=== PATIENT | female | born 1960 | race Caucasian/White ===

== ENCOUNTER 2021-11-25 08:18 | Outpatient (CLI) | payer BC, SELFPAY ==
--- NOTE | ~2021-11-25 | MM_ITS ---
EXAMINATION: MM scrn ambika implant BI w lily HISTORY: Screening mammogram TECHNIQUE: Craniocaudal and mediolateral oblique 3-D tomosynthesis images with implant displacement a nd synthetic 2-D images were generated. Craniocaudal and mediolateral oblique views of the breasts wi thout implant displacement were obtained using full field digital mammography. CAD analysis was submi tted and interpreted. COMPARISON: 01/02/2019, 10/01/2017, 09/11/2016 BREAST PARENCHYMAL COMPOSITION: There are scattered areas of fibroglandular density. FINDINGS: A stable mass in the anterior third of the inner right breast is considered benign given th e lack of interval change. There is no evidence of suspicious mass, calcification, or architectural d istortion to suggest malignancy in either breast. There has been no suspicious interval change. IMPRESSION: 1. No mammographic evidence of malignancy. 2. Recommend routine screening mammography in one year. BI-RADS Category 2: Benign finding(s). Reviewed, dictated and finalized at location A.
== END 2021-11-25 08:19 | disposition home or self-care (01) ==
LOC: ANHIMG 08:20
PROVIDERS: PCP Internal Medicine; Visit Provider Internal Medicine
DX: Z12.31 Encounter for screening mammogram for malignant neoplasm of breast (principal)
CPT/HCPCS: 77063; 77067

== ENCOUNTER 2022-01-27 09:53 | Outpatient (CLI) | payer BC, SELFPAY ==
--- NOTE | ~2022-01-27 | DEXA_ITS ---
Bone Density Report Name: DANY MERRITT Age: 61 Sex: Female Ethnicity: White Date of : 1960 Indication: postmenopausal; screening for osteoporosis; height loss; Referring Provider: DUYEN*, BERNARDO Millard Study: Bone densitometry was performed. Exam Date: January 27, 2022 Accession number: [id number] Bone Density: Region BMD T-score Z-score Classification AP Spine(L1, L2, L3) 0.911 -1.0 0.6 Normal Femoral Neck (Left) 0.723 -1.1 0.2 Osteopenia Total Hip (Left) 0.905 -0.3 0.8 Normal Femoral Neck (Right) 0.724 -1.1 0.3 Osteopenia Total Hip (Right) 0.891 -0.4 0.6 Normal Total Hip Mean 0.898 -0.4 0.7 Normal World Health Organization criteria for BMD impression classify patients as: Normal (T-score at or above -1.0), Osteopenia (T-score between -1.0 and -2.5), or Osteoporosis (T-score at or below -2.5). 10-year Fracture Risk(1): Major Osteoporotic Fracture 6.9% Hip Fracture 0.4% Reported Risk Factors: [place] (), Neck BMD=0.723, BMI=39.4 (1) FRAX(R) Version 3.08. Fracture probability calculated for an untreated patient. Fracture probability may be lower if the patient has received treatment. Clinical Information Provided by Patient: Has used the following medications: Vitamin D, Calcium Patient maximum height was 60 Menopause Age: 49 Onset of menses at age 10 Number of children 2 Impression: The patient has low bone mass, based on the Left Femoral Neck T-score. The patient has an estimated ten-year risk of hip fracture of 0.4% and an estimated ten-year risk of major fracture of 6.9%, based on the WHO FRAX algorithm. Discussion: BONE DENSITY IS LOW AT ONE OR MORE SKELETAL SITES. This patient's lowest T-score is low at one or more skeletal sites. It meets the World Health Organization's (WHO) criteria for ?low bone mass? (T-score between -1.0 and -2.5). The patient's 10-year risk of fracture as calculated by FRAX is less than the threshold where pharmacological therapy is recommended by the National Osteoporosis Foundation (NOF). However, all treatment decisions require clinical judgment and consideration of individual patient factors, including patient preferences, comorbidities, previous drug use, risk factors not captured in the FRAX model (e.g., frailty, falls, vitamin D deficiency, increased bone turnover, interval significant decline in bone density) and possible under or overestimation of fracture risk by FRAX. The patient should follow a healthful lifestyle (good nutrition with adequate calcium and vitamin D, and appropriate weight-bearing exercise). Follow-Up: Consider repeating this study in 2 to 3 years to reassess this patient's status, or sooner if there is some new clinical indication. Reported by: ANNETTE on 01/27/2022 10:17:00 AM.
== END 2022-01-27 09:54 | disposition home or self-care (01) ==
LOC: ANHIMG 09:56
PROVIDERS: PCP Internal Medicine; Visit Provider Internal Medicine
DX: M81.0 Age-related osteoporosis without current pathological fracture (principal); M85.89 Other specified disorders of bone density and structure, multiple sites
CPT/HCPCS: 77080

== ENCOUNTER 2023-09-21 15:04 | Outpatient (CLI) | payer BC, SELFPAY ==
--- NOTE | ~2023-09-21 | MM_ITS ---
EXAMINATION: MM scrn ambika implant BI w lily HISTORY: Screening mammogram TECHNIQUE: Craniocaudal and mediolateral oblique 3-D tomosynthesis images with implant displacement a nd synthetic 2-D images were generated. Craniocaudal and mediolateral oblique views of the breasts wi thout implant displacement were obtained using full field digital mammography. CAD analysis was submi tted and interpreted. COMPARISON: 11/25/2021, 01/02/2019 bilateral implant screening mammogram examinations BREAST PARENCHYMAL COMPOSITION: There are scattered areas of fibroglandular density. FINDINGS: Status post bilateral augmentation mammoplasty. Stable small circumscribed low-density mass in the anterior inner right breast, benign in appearance. There is no evidence of suspicious mass, c alcification, or architectural distortion to suggest malignancy in either breast. There has been no s uspicious interval change. IMPRESSION: 1. No mammographic evidence of malignancy. 2. Recommend routine screening mammography in one year. BI-RADS Category 2: Benign finding(s). Reviewed, dictated and finalized at location A.
== END 2023-09-21 15:05 | disposition home or self-care (01) ==
PROVIDERS: PCP Internal Medicine; Visit Provider Internal Medicine
DX: Z12.31 Encounter for screening mammogram for malignant neoplasm of breast (principal)
CPT/HCPCS: 77063; 77067

== ENCOUNTER 2024-11-27 13:49 | Outpatient (CLI) | payer MEDICARE, SELFPAY ==
--- NOTE | ~2024-11-27 | MM_ITS ---
EXAMINATION: MM scrn ambika implant BI w lily HISTORY: Screening mammogram TECHNIQUE: Craniocaudal and mediolateral oblique 3-D tomosynthesis images with implant displacement a nd synthetic 2-D images were generated. Craniocaudal and mediolateral oblique views of the breasts wi thout implant displacement were obtained using full field digital mammography. CAD analysis was submi tted and interpreted. COMPARISON: Comparison to multiple prior studies sequentially, with oldest reviewed study dated 10/2015. BREAST PARENCHYMAL COMPOSITION: Not dense: There are scattered areas of fibroglandular density. FINDINGS: There is no evidence of suspicious mass, calcification, or architectural distortion to sugg est malignancy in either breast. There has been no suspicious interval change. IMPRESSION: 1. No mammographic evidence of malignancy. 2. Recommend routine screening mammography in one year. BI-RADS Category 1: Negative Reviewed, dictated and finalized at location B.
--- NOTE | ~2024-11-27 | DEXA_ITS ---
Bone Density Report Name: DANY MERRITT Age: 64 Sex: Female Ethnicity: White Date of : 1960 Indication: postmenopausal; screening for osteoporosis; height loss; Referring Provider: DUYEN*, BERNARDO Millard Study: Bone densitometry was performed. Exam Date: November 27, 2024 Accession number: [id number] Bone Density: Region BMD T-score Z-score Classification AP Spine(L1, L2, L3) 0.828 -1.7 0.0 Osteopenia Femoral Neck (Left) 0.683 -1.5 0.0 Osteopenia Total Hip (Left) 0.937 0.0 1.2 Normal Femoral Neck (Right) 0.672 -1.6 -0.1 Osteopenia Total Hip (Right) 0.891 -0.4 0.8 Normal Total Hip Mean 0.914 -0.2 1.0 Normal World Health Organization criteria for BMD impression classify patients as: Normal (T-score at or above -1.0), Osteopenia (T-score between -1.0 and -2.5), or Osteoporosis (T-score at or below -2.5). 10-year Fracture Risk(1): Major Osteoporotic Fracture 8.7% Hip Fracture 1.0% Reported Risk Factors: [place] (), Neck BMD=0.672, BMI=33.3 (1) FRAX(R) Version 3.08. Fracture probability calculated for an untreated patient. Fracture probability may be lower if the patient has received treatment. Previous Exams: Region Exam Age BMD T-score BMD Change BMD Change Date g/cm2 vs Baseline vs Previous AP Spine (L1-L3) 11/27/2024 64 0.828 -1.7 -0.083 (-9.1%) -0.083 (-9.1%) 01/27/2022 61 0.911 -1.0 Total Hip(Left) 11/27/2024 64 0.937 0.0 0.032 (3.6%)* 0.032 (3.6%)* 01/27/2022 61 0.905 -0.3 Total Hip(Right) 11/27/2024 64 0.891 -0.4 0.001 (0.1%) 0.001 (0.1%) 01/27/2022 61 0.891 -0.4 *Denotes significance at 95% confidence level, LSC for AP Spine = 0.022 g/cm2, LSC for Total Hip = 0.027 g/cm2 Clinical Information Provided by Patient: Patient maximum height was 60 Menopause Age: 49 Drinks caffeinated beverages Onset of menses at age 10 Number of children 2 Impression: The patient has low bone mass, based on the Total Spine T-score. The patient has an estimated ten-year risk of hip fracture of 1% and an estimated ten-year risk of major fracture of 8.7%, based on the WHO FRAX algorithm. The BMD for the AP Spine (L1-L3) decreased, changing by -9.1% since the last DXA exam. Discussion: BONE DENSITY IS LOW AT ONE OR MORE SKELETAL SITES. This patient's lowest T-score is low at one or more skeletal sites. It meets the World Health Organization's (WHO) criteria for ?low bone mass? (T-score between -1.0 and -2.5). The patient's 10-year risk of fracture as calculated by FRAX is less than the threshold where pharmacological therapy is recommended by the National Osteoporosis Foundation (NOF). However, all treatment decisions require clinical judgment and consideration of individual patient factors, including patient preferences, comorbidities, previous drug use, risk factors not captured in the FRAX model (e.g., frailty, falls, vitamin D deficiency, increased bone turnover, interval significant decline in bone density) and possible under or overestimation of fracture risk by FRAX. The patient should follow a healthful lifestyle (good nutrition with adequate calcium and vitamin D, and appropriate weight-bearing exercise). Follow-Up: Consider repeating this study in 2 years to reassess this patient's status, or sooner if there is some new clinical indication. Reported by: ANNETTE on 11/27/2024 2:27:00 PM. Reviewed, dictated and finalized at location A.
--- OUTSIDE RECORDS SUMMARY | 2024-11-27 13:57 | XMS_ITS | Data Portability ---
Author Organization [place] [facility], Main Office Address [address] [place] [address] Assessment No assessment recorded. Plan of Treatment Reminders Order Date Submit Date Provider Last Modified By Organization Details Last Modified Time Details Appointments None recorded. Lab lipid panel, serum 2024 025 KOKI [facility] [facility] [employer] [facility], [address], [place], [address], 5 14:52:13 CMP, serum or plasma 2024 025 KOKI [employer] [facility], [address], [place], [address], 5 14:52:12 magnesium , serum or plasma 2024 025 [email or web address] [employer] [facility] [employer] [facility], [address], [place], [address], 5 10:06:05 vitamin B12, serum 2024 025 [facility] [facility] [employer] [facility], [address], [place], [address], 5 10:06:05 CBC w/ auto diff 2024 025 [email or web address] [facility], [address], [place], [address], 5 10:06:05 vitamin D, 1,25-dihy droxy, serum 2024 025 [email or web address] [facility] (Lab), [address] [place], [address], 5 10:06:06 TSH, serum or plasma 2023 024 [employer] [facility] [employer] [facility], [address], [place], [address], 4 09:43:45 T4, free, serum 2023 024 [email or web address] [facility] [facility], [address], [place], [address], 4 09:43:46 vitamin D, 25-hydrox y, total, serum 2023 024 [facility] [facility], [address], [place], [address], 4 09:43:46 lipid panel, serum 2023 024 [email or web address] [facility] [facility], [address], [place], [address], 11:24:38 CMP, serum or plasma 2023 024 KOKI [facility] [facility] [employer] [facility], [address], [place], [address], 4 20:42:19 vitamin B12, serum 2023 024 [email or web address] [facility] [facility], [address], [place], [address], 4 09:43:45 magnesium , serum or plasma 2023 024 [facility] [facility], [address], [place], [address], 4 09:43:45 CBC w/ auto diff 2023 024 [email or web address] [facility] [facility], [address], [place], [address], 4 09:43:45 TSH, serum or plasma 2023 024 [id number] [facility], [address] [place], [address], 4 17:33:09 T4, free, serum 2023 024 [email or web address] [facility], [address] [place], [address], 4 17:33:09 vitamin D, 25-hydrox y, total, serum 2023 024 [email or web address] [facility], [address] [place], [address], 4 17:33:09 lipid panel, serum 2023 024 [email or web address] [facility], [address] [place], [address], 4 15:13:18 CMP, serum or plasma 2023 024 [email or web address] [facility], [address] [place], [address], 4 15:13:19 vitamin B12, serum 2023 024 [email or web address] [facility], [address] [place], [address], 4 17:33:09 magnesium , serum or plasma 2023 024 [id number] [facility], [address] [place], [address], 4 17:33:09 CBC w/ auto diff 2023 024 [id number] [facility], [address] [place], [address], 4 17:33:09 vitamin D, 25-hydrox y, total, serum 2022 023 [id number] [facility], [address] [place], [address], 3 13:22:04 lipid panel, serum 2022 023 [email or web address] [facility], [address] [place], [address], 3 13:22:03 TSH, serum or plasma 2022 023 [id number] [facility], [address] [place], [address], 3 13:22:03 CMP, serum or plasma 2022 023 [id number] [facility], [address] [place], [address], 3 13:22:04 CBC w/ auto diff 2022 023 [email or web address] [facility], [address] [place], [address], 3 13:22:04 T4, free, serum 2022 023 [email or web address] [facility], [address] [place], [address], 3 13:22:04 HbA1c (hemoglob in A1c), blood 2022 023 [email or web address] [facility], [address] [place], [address], 3 13:22:04 Referral None recorded. Procedures None recorded. Surgeries None recorded. Imaging None recorded. Medication Orders tramadol 50 mg tablet [address] [facility] [facility], [place], [address], 14:40:01 baclofen 10 mg tablet 2023 024 [email or web address] [facility], [address] [facility], [place], [address], 14:39:32 Patient TargetsNo targets recorded. Patient Instructions Encounter Date Encounter Id Patient Instructions Last Modified By Organization Details Last Modified Time 01/24/2023 [id number] risk assessment* Not availabl e 01/24/2023 16:39:15 INFLUENZA VACCIN E TD/TDAP Recommended today, patient declined Ordered Pa tient will get at local pharmacy/health department PNEUMONIA VACCINE Ordered Recommended today, patient declined Patient will get at local pharmacy/health department Recommen ded at age 64 SHINGLES Ordered Recommended today, patient declined Patient will get at local pharmacy/health department MAMMOGRAM: Last Mammogram DEXA SCAN No screening necessary patient is up to date CERVICAL SCREENING/PELVIC EXAMINATION COLORECTAL SCREENING: Last Colonoscopy No screening necessary patient is up to date DEPRESSION SCREENING Continue current medication BMI Overweight continue your current weight loss efforts try to lose 5% of your body weight try to lose 10% of your body weight NUTRITION PHYSICAL ACTIVITY Need more exercise/physical activity VISION ALCOHOL USE No alcohol use Occasional/Soci al Use TOBACCO USE non smoker LUNG CANCER SCREENING Non Smoker-not indicated SEXUALLY ACTIVE HEPATITIS C SCREENING Not indicated GLUCOSE SCREENING LIPID SCREENING [email or web address] Not available 01/24/2023 16:28:53 Wellness evaluat ion risk assessment stable. Follow-up for diverticulitis -umbilical hernia as well as some mild obesity. Will check blood work in the form of CBC, CMP, lipid, thyroid, globin A1c and and vitamin-D. 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 Follow-up in six months [employer] [facility] well woman examination. Mammogram Not available 01/24/2023 16:38:56 09/19/2023 [id number] Follow-up GERD, diverticulitis of the colon, obesity class two and tubular adenoma of the colon. All clinically stable. He has had no GI symptomatology etc. Overall has been feeling good. Will check blood work consisting of CBC, CMP, lipid, thyroid, magnesium and B12 level. Also check a vitamin-D level. Already scheduled for mammography. Not due for colonoscopy at this time. Follow-up in six months. Portions of the record may have been created with voice recognition software. Occasional wrong-word or s ound-a-like substitutions may have occurred due to the inherent limitations of voice recognition software. Read the chart carefully and recognize, using context, where substitutions have occurred. [email or web address] Not available 09/19/2023 15:07:30 12/12/2023 [id number] Lower back strai n. Plan is to continue on current Rx will add some tramadol 50 mg q.8 hours along with some baclofen. Will set up for some physical therapy check back in two weeks. May need to consider an MRI for further evaluation if no improvement. Set up physical therapy for lower back strain Next Appointment: 2 Weeks Approximate Date: 12/26/2023 Portions of the record may have been created with voice recognition software. Occasional wrong-word or s ound-a-like substitutions may have occurred due to the inherent limitations of voice recognition software. Read the chart carefully and recognize, using context, where substitutions have occurred. [email or web address] Not available 12/12/2023 12:04:08 04/28/2024 [id number] risk assessment* Not availabl e 04/28/2024 14:50:41 INFLUENZA VACCIN E Recommended today, but patient declined TD/TDAP Recommended today, patient declined Ordered Pa tient will get at local pharmacy/health department PNEUMONIA VACCINE Ordered Recommended today, patient declined Patient will get at local pharmacy/health department Recommen ded at age 64 SHINGLES Ordered Recommended today, patient declined Patient will get at local pharmacy/health department MAMMOGRAM: Last Mammogram No screening necessary patient is up to date DEXA SCAN Recommended today, but patient declined CERVICAL SCREENING/PELVIC EXAMINATION COLORECTAL SCREENING: Last Colonoscopy No screening necessary patient is up to date DEPRESSION SCREENING Negative BMI Overweight continue your current weight loss efforts try to lose 5% of your body weight try to lose 10% of your body weight NUTRITION PHYSICAL ACTIVITY Need more exercise/physical activity VISION ALCOHOL USE No alcohol use Occasional/Soci al Use TOBACCO USE non smoker LUNG CANCER SCREENING Non Smoker-not indicated SEXUALLY ACTIVE HEPATITIS C SCREENING Not indicated GLUCOSE SCREENING LIPID SCREENING [email or web address] Not available 04/28/2024 14:40:18 Well patient evaluation risk assessment stable. Follow-up for GERD, diverticulitis of the colon obesity all clinically stable. Will continue on current medications check blood work in the form of CBC, CMP, lipid and thyroid. Also get a bone density scan. Is otherwise seems to be doing well. Check blood work consisting of CBC, CMP, lipid, thyroid, vitamin-D level, magnesium and B12. Follow-up in six months Additional Orders - Directives - Recommendations 1. DEXA Scan Follow Up: 5 Months Approximate Date: 09/25/2024 Portions of the record may have been created with voice recognition software. Occasional wrong-word or s ound-a-like substitutions may have occurred due to the inherent limitations of voice recognition software. Read the chart carefully and recognize, using context, where substitutions have occurred. [email or web address] Not available 04/28/2024 14:50:16 10/27/2024 [id number] As well as obesi ty class one clinically stable. Is due for mammogram and bone density scan. Will continue on current medications check blood work consisting of CBC, CMP, lipid, thyroid, B12, magnesium and vitamin-D level. Continue on current Rx follow-up in six months Additional Orders - Directives - Recommendations 1. 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 Mammogram again if not done by [employer] [facility] Follow Up: 6 Months Approximate Date: 04/25/2025 Portions of record are template driven. When necessary additional context will be provided. Additionally some portions have been created with voice recognition software. Occasional wrong-word or s ound-a-like substitutions may have occurred due to the inherent limitations of voice recognition software. Read the chart carefully and recognize, using context, where substitutions may have occurred. Created: Magen Norwood M.D. 10.27.2024 01:50 PM [email or web address] Not available 10/27/2024 14:51:01 Reason for Referral None Reported. Results Created Date Observation Date Name Description Value Unit Range Abnormal Flag Note LastModifiedBy Organization Detail LastModifiedTime 05/07/20 24 05/07/2024 COMPR EHENS MELISA METAB OLIC PANEL glucose 93 mg/dL 65-99 normal Whole blood , unspu n or parti ally spun gel barri er tube was recei nisa more than 6 hours since colle ction . A false eleva tion of K, Phos and LD as well as a false decre ase in gluco se may occur due to prolo nged conta ct with red cells . Fasti ng refer ence inter carlos alberto Not Available [facility] [place] [address] [place], [address], 05/07/2024 20:42:19 05/07/20 24 05/07/2024 COMPR EHENS MELISA METAB OLIC PANEL urea nitrogen (BUN) 17 mg/dL 7-25 normal Not Available [facility] [address], [address], 05/07/2024 20:42:19 05/07/20 24 05/07/2024 COMPR EHENS MELISA METAB OLIC PANEL creatinine 0.63 mg/dL 0.50-1 .05 normal Not Available [place] [address] [place], [address], 05/07/2024 20:42:19 05/07/20 24 05/07/2024 COMPR EHENS MELISA METAB OLIC PANEL eGFR 99 mL/mi n/1.7 3m2 > or = 60 normal Not Available [address], [address], 05/07/2024 20:42:19 05/07/20 24 05/07/2024 COMPR EHENS MELISA METAB OLIC PANEL BUN/creatini ne ratio SEE NOTE: (calc ) 6-22 Not Repor giovany: BUN and Creat inine are withi n refer ence range . Not Available [facility] [place] [address] [place], [address], 05/07/2024 20:42:19 05/07/20 24 05/07/2024 COMPR EHENS MELISA METAB OLIC PANEL sodium 138 mmol/ L 135-14 6 normal Not Available [facility] [address] [place], [address], 05/07/2024 20:42:19 05/07/20 05/07/2024 COMPR EHENS MELISA METAB OLIC PANEL potassium 4.3 mmol/ L 3.5-5. 3 normal Not Available [address], [address], 05/07/2024 20:42:19 05/07/20 24 05/07/2024 COMPR EHENS MELISA METAB OLIC PANEL chloride 104 mmol/ L 98-110 normal Not Available [address], [address], 05/07/2024 20:42:19 05/07/20 24 05/07/2024 COMPR EHENS MELISA METAB OLIC PANEL carbon dioxide 29 mmol/ L 20-32 normal Not Available [address], [address], 05/07/2024 20:42:19 05/07/20 24 05/07/2024 COMPR EHENS MELISA METAB OLIC PANEL calcium 9.3 mg/dL 8.6-10 .4 normal Not Available [address], [address], 05/07/2024 20:42:19 05/07/20 24 05/07/2024 COMPR EHENS MELISA METAB OLIC PANEL protein, total 7.3 g/dL 6.1-8. 1 normal Not Available [address], [address], 05/07/2024 20:42:19 05/07/20 24 05/07/2024 COMPR EHENS MELISA METAB OLIC PANEL albumin 4.2 g/dL 3.6-5. 1 normal Not Available [address], [address], 05/07/2024 20:42:19 05/07/20 24 05/07/2024 COMPR EHENS MELISA METAB OLIC PANEL globulin 3.1 g/dL_ (calc ) 1.9-3. 7 normal Not Available [place] [address] [place], [address], 05/07/2024 20:42:19 05/07/20 24 05/07/2024 COMPR EHENS MELISA METAB OLIC PANEL albumin/glob ulin ratio 1.4 (calc ) 1.0-2. 5 normal Not Available [address], [address], 05/07/2024 20:42:19 05/07/20 24 05/07/2024 COMPR EHENS MELISA METAB OLIC PANEL bilirubin, total 0.4 mg/dL 0.2-1. 2 normal Not Available [address], [address], 05/07/2024 20:42:19 05/07/20 24 05/07/2024 COMPR EHENS MELISA METAB OLIC PANEL alkaline phosphatase 72 U/L 37-153 normal Not Available [facility] [address], [address], 05/07/2024 20:42:19 05/07/20 24 05/07/2024 COMPR EHENS MELISA METAB OLIC PANEL AST 13 U/L 10-35 normal Not Available [address], [address], 05/07/2024 20:42:19 05/07/20 24 05/07/2024 COMPR EHENS MELISA METAB OLIC PANEL ALT 12 U/L 6-[address] to have a dupli mariah copy faxed has been emy [place]. [place]ue d to: [phone] Not Available [address], [address], 05/07/2024 20:42:19 09/21/19 24 09/21/2023 MAMMO , scree arlene, bilat eral No observ ation record ed. [email or web address], [place], [address], 09/21/2023 17:12:26 10/09/19 24 09/21/2023 MAMMO , danaee arlene, bilat eral No observ ation record ed. [email or web address] Not Available 2023 14:29:11 11/19/19 24 11/19/2023 US, echoc ardio gram No observ ation record ed. [address] [facility] [address], [place], [address], 11/19/2023 14:14:09 11/23/19 24 11/23/2023 PFT, compl ete No observ ation record ed. [address] [facility] [address], [place], [address], 11/23/2023 17:29:20 12/17/19 24 12/17/2023 myoca rdial perfu josé study w/ eject ion fract ion (PROC ) No observ ation record ed. [facility] [address], [place], [address], 12/19/2023 09:56:50 01/03/20 24 01/02/2024 CT, coron federico calci um score No observ ation record ed. [address] [facility] [address], [place], [address], 01/03/2024 17:30:12 Result Notes None recorded. Problems Name Problem SNOMED Code Status Onset Date Resolution Date Notes Provider Name and Address Organization Details Recorded Time Umbilical hernia 454858939 Active 2022 Magen Norwood MD [address], [place], [address] , [place] [facility] [employer] 3 16:31:38 Acute bronchitis 15226464 Active 2021 Not Available [facility] 3 03:07:57 Diverticul itis of colon 951226471 Active Not Available [facility] 3 03:07:57 Trigger finger of right hand 8527710512187 9101 Active 2020 Not Available [facility] 3 03:07:57 Chronic back pain 664798181 Active 2017 Not Available [facility] 3 03:07:57 Acquired trigger finger 5659218 Active Not Available [facility] 3 03:07:57 Prepatella r bursitis 12175900 Active Not Available [facility] 3 03:07:57 Senile osteoporos is 93713140 Active 2021 Not Available [facility] 3 03:07:58 Radiothera py follow-up 418386960 Active Not Available [facility] 3 03:07:58 Microscopi c hematuria 171277443 Active Not Available [facility] 3 03:07:58 Localized, primary osteoarthr itis of the hand 431850260 Active Not Available [facility] 3 03:07:58 Radial styloid tenosynovi tis 35752968 Active Not Available [facility] 3 03:07:58 Gastroesop hageal reflux disease 143806697 Active Not Available [facility] 3 03:07:58 Current tear of medial cartilage AND/OR meniscus of knee Active Not Available [facility] 3 03:07:58 Follow-up orthopedic assessment 958822622 Active Not Available [facility] 3 03:07:58 Ureteric stone 21795442 Active Not Available [facility] 3 03:07:58 Localized, primary osteoarthr itis of the wrist 939795312 Active Not Available [facility] 3 03:07:58 Vitamin D deficiency 27074876 Active 2021 Not Available [facility] 3 03:07:58 Depressive disorder 22507421 Active Not Available [facility] 3 03:07:58 Osteoarthr itis 449748446 Active Not Available [facility] 3 03:07:58 Obesity 724134417 Active 2020 Not Available [facility] 3 03:07:58 Tubular adenomatou s polyp of colon 839150429 Active 2021 Not Available [facility] 3 03:07:58 Carpal tunnel syndrome 79881404 Active Not Available [facility] 3 03:07:59 Derangemen t of knee 71999934 Active Not Available [facility] 3 03:07:59 Colorectal cancer detected by DNA-based stool screening 060787558 Active 2021 Not Available [facility] 3 03:07:59 Serous otitis media 83749096 Active 2021 Not Available [facility] 3 03:07:59 Pain in limb 75549147 Active Not Available [facility] 3 03:07:59 Low back pain 987729658 Active 2023 Magen Norwood MD [address], [place], [address] , [facility] - [facility] 4 11:57:36 Low back strain 966385660 Active 2023 Deidra Bianchi null, [facility] 4 12:07:29 Vitamin D below reference range 578615135 Active 2023 Magen Norwood MD [address], [address], [place], [address] , [facility] - [facility] 4 14:49:52 Acute sinusitis 37202871 Active 2023 Magen Norwood MD [address], [place], [address] , [facility] 4 14:52:19 Gastroesop hageal reflux disease without esophagiti s 340303001 Active 2023 SARA Mera, [place] [facility] 4 12:38:15 Urinary tract infectious disease 44905349 Active 2024 Magen Norwood MD [address], [address], [place], [address] , [facility] - [facility] 5 11:22:17 Acute urinary tract infection 803371884 Active 2024 Magen Norwood MD [address], [address], [place], [address] , [place] [facility] 11:22:26 Obese class I 8613486698499 07 Active 2024 Magen Norwood MD [address], [address], [place], [address] , [place] [facility] [employer] [facility] 14:47:49 Fatigue 04935066 Active 2024 Magen Norwood MD [address], [address], [place], [address] , [place] [facility] [employer] [facility] 14:50:35 Problem Notes None recorded. Procedures Surgical History Date Name Laterality Status Provider Name and Address Organization Details Recorded Time Endoscopy completed Not Available [facility] 0 09/06/2022 03:00:19 Colonoscopy completed Not Available [facility] 09/06/2022 03:00:19 Imaging Results Imaging Date Name Status LastModified by Organization Details LastModified Time 09/21/2023 MAMMO, screening, bilateral completed [email or web address] [facility] [address], [place], [address], 09/21/2023 17:12:26 09/21/2023 MAMMO, screening, bilateral completed [email or web address] Information not available 10/09/2023 14:29:11 11/19/2023 US, echocardiogram completed [email or web address] [facility] [address], [place], [address], 11/19/2023 14:14:09 11/23/2023 PFT, complete completed [facility] [address], [place], [address], 11/23/2023 17:29:20 12/17/2023 myocardial perfusion study w/ ejection fraction (PROC) completed [facility] [address], [place], [address], 12/19/2023 09:56:50 01/02/2024 CT, coronary calcium score completed [email or web address] [facility] [address], [place], [address], 01/03/2024 17:30:12 Procedure Notes None recorded. Medical Equipment None Reported. Medications Name Sig Start Date Stop Date Status Note LastModified by Organization Details LastModified Time cyclobenzap rine 10 mg tablet Take 1 tablet 3 times a day by oral route. 03/19 completed Not Available Not Available Not Available amoxicillin 500 mg capsule TAKE 1 CAPSULE BY MOUTH THREE TIMES DAILY UNTIL GONE 04/28 completed Not Available Not Available Not Available prednisone 10 mg tablet TAKE 1 TABLET BY MOUTH 3 TIMES A DAY FOR 3 DAYS THEN TAKE 1 TABLET BY MOUTH 2 TIMES A DAY FOR 2 DAYS THEN TAKE 1 TABLET BY MOUTH ONCE A DAY 10/24 completed Not Available Not Available Not Available atorvastati n 20 mg tablet active Not Available Not Available Not Available naproxen 375 mg tablet Take 1 tablet twice a day by oral route. 07/03 completed Not Available Not Available Not Available azithromyci n 250 mg tablet TAKE 2 TABLETS BY MOUTH ON DAY 1, AND THEN TAKE 1 TABLET BY MOUTH ONCE A DAY ON DAY 2 THROUGH DAY 5 10/27 completed Not Available Not Available Not Available ibuprofen 800 mg tablet TAKE ONE TABLET BY MOUTH EVERY 8 HOURS 10/24 completed Not Available Not Available Not Available benzonatate 200 mg capsule TAKE 1 CAPSULE BY MOUTH THREE TIMES DAILY 12/11 completed Not Available Not Available Not Available hydrocodone 5 mg-acetamin ophen 325 mg tablet TAKE 1 TABLET BY MOUTH EVERY 6 HOURS NEEDED 10/27 completed Not Available Not Available Not Available diphenoxyla te-atropine 2.5 mg-0.025 mg tablet Take 2 TABLET 4 TIMES A DAY by oral route prn for diarrhea 03/01 completed Not Available Not Available Not Available metronidazo le 500 mg tablet TAKE 1 TABLET BY MOUTH EVERY 8 HOURS 12/13 completed Not Available Not Available Not Available Ciloxan 0.3 % eye drops Instill 1 DROP EVERY 2 HOURS while awake 03/01 completed Not Available Not Available Not Available ciprofloxac in 500 mg tablet TAKE 1 TABLET BY MOUTH TWICE DAILY FOR 10 DAYS 06/07 /2022 completed Not Available Not Available Not Available sulfamethox azole 800 mg-trimetho prim 160 mg tablet TAKE 1 TABLET BY MOUTH EVERY 12 HOURS 10/27 completed Not Available Not Available Not Available aspirin 81 mg tablet,efrem yed release Take 1 tablet every day by oral route. active Not Available Not Available No t Available tramadol 50 mg tablet TAKE 1 TABLET BY MOUTH EVERY 6 HOURS 10/27 completed Not Available Not Available Not Available prednisone 10 mg tablets in a dose pack Take 1 tab by mouth, 3 times a day for 3 daysTake 1 tab by mouth 2 times a day for 2 daysTake 1 tab by mouth once a day for 1 day 10/24 completed Not Available Not Available Not Available Tessalon Perles 100 mg capsule Take 1 capsule 3 times a day by oral route. 03/01 completed Not Available Not Available Not Available alprazolam 0.25 mg tablet TAKE 1-2 TABLETS BY MOUTH 30 MINUTES PRIOR TO INJECTION 01/24 completed Not Available Not Available Not Available citalopram 20 mg tablet TAKE 1 TABLET DAILY 01/24 completed Not Available Not Available Not Available tamsulosin 0.4 mg capsule TAKE 1 CAPSULE BY MOUTH ONCE DAILY 10/27 completed Not Available Not Available Not Available Kenalog 10 mg/mL suspension for injection In office injection administe red by the provider 12/13 completed [facility]: [phone] Not Available Not Available Not Available lorazepam 2 mg tablet 03/01 completed Not Available Not Available Not Available baclofen 10 mg tablet TAKE 1 TABLET BY MOUTH 4 TIMES DAILY 10/27 completed Not Available Not Available Not Available cephalexin 500 mg capsule TAKE 1 CAPSULE BY MOUTH 3 TIMES A DAY UNTIL GONE 10/24 completed Not Available Not Available Not Available pantoprazol e 40 mg tablet,efrem yed release TAKE 1 TABLET DAILY active Not Available Not Available No t Available tobramycin 0.3 % eye drops INSTILL 1 DROP INTO AFFECTED EYE(S) BY OPHTHALMI C ROUTE EVERY 4 HOURS 08/08 completed Not Available Not Available Not Available lidocaine 5 % topical patch APPLY 1 PATCH TO SKIN ONCE A DAY. 10/27 completed Not Available Not Available Not Available etodolac 400 mg tablet Take 1 tablet twice a day by oral route. 07/03 completed Not Available Not Available Not Available Levaquin 500 mg tablet Take 1 tablet every 24 hours by oral route. 07/03 completed Not Available Not Available Not Available lorazepam 1 mg tablet one three times a day 01/24 completed Not Available Not Available Not Available methylpredn isolone 4 mg tablets in a dose pack Take by oral route as per package insert 07/03 completed Not Available Not Available Not Available ondansetron 4 mg disintegrat ing tablet DISSOLVE 1 TABLET IN MOUTH EVERY 6 HOURS NEEDED FOR NAUSEA AND VOMITING 10/27 completed Not Available Not Available Not Available cefdinir 300 mg capsule TAKE 1 CAPSULE BY MOUTH EVERY 12 HOURS FOR 7 DAYS 10/27 completed Not Available Not Available Not Available dicyclomine 10 mg capsule 03/01 completed Not Available Not Available Not Available naproxen 500 mg tablet TAKE 1 TABLET BY MOUTH TWICE DAILY WITH FOOD 10/27 completed Not Available Not Available Not Available Mucinex 600 mg tablet, extended release Take 1 tablet every 12 hours by oral route. 03/01 completed Not Available Not Available Not Available Lexapro 10 mg tablet Take 1 tablet every day by oral route. 10/24 completed Not Available Not Available Not Available lidocaine (PF) 10 mg/mL (1 %) injection solution In office injection administe red by the provider 12/13 completed [facility]: [phone] Not Available Not Available Not Available GaviLyte-G 236 gram-22.74 gram-6.74 gram-5.86 gram oral solution DIRECTED 04/12 completed Not Available Not Available Not Available Flowflex COVID-19 Antigen Home Test kit 01/24 completed Not Available Not Available Not Available Vitals Date Recorded Body height Body mass index (BMI) Body weight Heart rate Oxygen saturation Oxygen saturation in Arterial blood by Pulse oximetry Systolic blood pressure Diastolic blood pressure Provider Name and Address Organization Details Last Updated DateTime 3 149.86 cm 33.9 kg/m2 81065.5 2 g 92 /min 97 % 97 % 120 mm[Hg] 68 mm[Hg] Blessing Severino [place] [facility] 3 16:21:44 Date Recorded Body height Body mass index (BMI) Body weight Heart rate Body temperature Oxygen saturation Oxygen saturation in Arterial blood by Pulse oximetry Systolic blood pressure Diastolic blood pressure Provider Name and Address Organization Details Last Updated DateTime 4 151.13 cm 35.7 kg/m2 40571.6 3 g 87 /min 97 [degF] 95 % 95 % 120 mm[Hg] 78 mm[Hg] Blessing Severino [employer] [facility] [employer] [facility] 4 15:00:11 Date Recorded Body height Body mass index (BMI) Body weight Heart rate Body temperature Oxygen saturation Oxygen saturation in Arterial blood by Pulse oximetry Systolic blood pressure Diastolic blood pressure Provider Name and Address Organization Details Last Updated DateTime 4 151.13 cm 35.7 kg/m2 69226.6 3 g 96 /min 97.3 [degF] 96 % 96 % 142 mm[Hg] 88 mm[Hg] Tiffanie Cota Yaneth [facility] [employer] [facility] 4 11:49:10 Date Recorded Body height Body mass index (BMI) Body weight Heart rate Body temperature Oxygen saturation Oxygen saturation in Arterial blood by Pulse oximetry Systolic blood pressure Diastolic blood pressure Provider Name and Address Organization Details Last Updated DateTime 4 151.13 cm 35.7 kg/m2 79131.6 3 g 88 /min 97 [degF] 93 % 93 % 122 mm[Hg] 82 mm[Hg] Tiffanie Cota Yaneth [facility] [employer] [facility] 4 14:32:35 Date Recorded Body height Body mass index (BMI) Body weight Heart rate Body temperature Oxygen saturation Oxygen saturation in Arterial blood by Pulse oximetry Systolic blood pressure Diastolic blood pressure Provider Name and Address Organization Details Last Updated DateTime 5 151.13 cm 33.9 kg/m2 21786.5 g 82 /min 97 [degF] 93 % 93 % 120 mm[Hg] 78 mm[Hg] Blessing Severino [employer] [facility] [place] [facility] 5 14:39:16 Social History Question Answer Notes LastModified by Organizat ion Details LastModified Time Tobacco Smoking Status Never Smoker Not Available [employer] 09/06/2022 02:58:41 What Is Your Level Of Caffeine Consumption? Occasional [id number] Information not available 09/06/2022 What Type Of Diet Are You Following? REGULAR [id number] Information not available 09/06/2022 What Was The Date Of Your Most Recent Tobacco Screening? 04/12/2022 [id number] Information not available 09/06/2022 What Is Your Relationship Status? [id number] Information not available 09/06/2022 Do You Use Your Seat Belt Or Car Seat Routinely? Yes [id number] Information not available 09/06/2022 Have You Recently Traveled Abroad? No [id number] Information not available 09/06/2022 Sex: Female Functional Status Question Answer Note LastModified by Organizat ion Details LastModified Time What is your level of alcohol consumption? Occasional [id number] Information not available 09/06/2022 Mental Status None recorded. Family History Relationship Description Onset Age of this Age Resolved Age Notes LastModified by Organization Details LastModified Time Father No current problems or disability [email or web address] Not available 10/27 14:47:10 Mother No current problems or disability Mother 90- deceas ed g with Type II Diabet es Father 72 deceas ed arteri oscler otic heart diseas e and CABG Six brothe rs 4 living . CAD(1) MVA(1) [email or web address] Not available 10/27/2024 14:47:17 Notes:no family history of s tones Medical History Condition Response NERVE DISEASE N BLINDNESS N RHEUMATIC FEVER N KIDNEY STONES N BLADDER PROBLEMS N MRSA N OTHER # 1 N POLIO N LUNG DISEASE/DISORDER N HISTORY OF DRUG ABUSE N RADIATION / CHEMOTHERAPY N COPD N Other # 2 N BLOOD DISEASES N EAR OR HEARING PROBLEMS N MUMPS N SHINGLES N BOWEL PROBLEMS N DEPRESSION (INCLUDING POST ) N FAILED BACK SYNDROME N STROKE/TIA N ULCERS N BENIGN PROSTATIC HYPERPLASIA N MEASLES N HYPOTENSION N MYOCARDIAL INFARCTION N OBESITY N GERD/NAUSEA N ANEURYSM N URINARY/BLADDER/KIDNEY PROBLEMS N CORONARY ARTERY DISEASE (CAD) N Do you have Advance directive? N ADDICTION CONCERNS N ENDOMETRIOSIS N Impotence N USE OF BLOOD THINNERS N SKIN PROBLEMS N GASTROINTESTINAL DISORDER N PERIPHERAL VASCULAR DISEASE N MUSCLE,JOINT OR BONE PROBLEMS N GASTROINTESTINAL BLEEDING N BLOOD CLOTS N ASTHMA N Abdominal Pain N CATARACTS N ARTERIAL INSUFFICIENCY N ERECTILE DYSFUNCTION N VARICOSITIES N GI PROBLEMS N Low Testosterone N INFERTILITY N AIDS/HIV N CHEMOTHERAPY / RADIATION N LIVER DISEASE N MALE HYPOGONADISM N HYPERTENSION N Deficiency N TOURETTE'S N ANXIETY DISORDER N BLOOD TRANSFUSION N ANEMIA/BLOOD DISORDER N CHRONIC EAR INFECTIONS N TUBERCULOSIS N GLAUCOMA N FOOT PROBLEM N DIVERTICULITIS N CHICKENPOX N SLEEP APNEA N BACK INJECTIONS N ALLERGIES/HAYFEVER N INFECTIOUS DISEASE N HEART ARRHYTHMIA N PROSTATE N ESRD N INSOMNIA N HIGH CHOLESTEROL / HYPERLIPIDEMIA N HYPERTHYROIDISM N EYE PROBLEMS N PVD N EDEMA N CHRONIC PAIN SYNDROME N HYPOTHYROIDISM N CONSTIPATION N CAROTID BLOCKAGE N BACK / NECK PROBLEMS N HAVE YOU BEEN [facility]PITALIZED [facility] THE [facility]ST [facility]AR ? N ATHEROSCLEROSIS N BREAST PROBLEMS N DIALYSIS N POLYCYSTIC OVARIES N ECZEMA N OSTEOPOROSIS N ARTHRITIS N NO SIGNIFICANT PAST MEDICAL HISTORY N APPENDICITIS N DIABETES, TYPE N BAD TEETH N VON WILLIBRAND'S DISEASE N ENT N HEARTBURN / REFLUX Y GI N AUTISM SPECTRUM DISORDER (ASD) N POST LAMINECTOMY SYNDROME N HEPATITIS / LIVER DISEASE N GOUT N SLEEP DISORDER N ALZHEIMER'S DISEASE N Brain Problems N HERPES N DEMENTIA N HEADACHES/MIGRAINES N SEIZURES/EPILEPSY N VASCULAR DISEASE N PACEMAKER N DIZZINESS N HEART DISEASE/HEART PROBLEMS N KIDNEY DISEASE N MULTIPLE SCLEROSIS N NEUROPSYCHOLOGICAL N CARDIAC ARRHYTHMIA N CANCER: SPECIFY N ATRIAL FIBRILLATION N Gall Stones N PULMONARY EMBOLISM N AUTOIMMUNE DISEASE N Gynecological HistoryNo gynecological history recorded. Obstetrics History GPAL:G 0 P 0 0 0 0 Immunizations Vaccine Type Date Status Note Provider Nam e and Address Organization Details Recorded Time Tdap 03/26/2017 completed Not Available [facility] 09/06/2022 03:16:32 Past Encounters Encounter ID Performer Location Encounter Start Date Encounter Closed Date Diagnosis/Indication Diagnosis SNOMED-CT Code Diagnosis ICD10 Code Diagnosis Note [id number] William Peck MD [facility] [place] [id number] [facility] [address] [place] [address] 09/16/2020 00:00:00 09/16/2020 14:24:58 [id number] Magen Norwood MD [facility] Internal Med [facility] [address] [facility] [address] [place] [address] 10/24/2021 00:00:00 10/24/2021 16:31:07 [id number] _ATHN_MIGR ATION_1 _ATHENA_M IGRATION_ DEFAULT_1 _1 , 01/25/2022 00:00:00 01/25/2022 16:49:45 [id number] _ATHN_MIGR ATION_1 _ATHENA_M IGRATION_ DEFAULT_1 _1 , 04/12/2022 00:00:00 04/12/2022 14:20:40 [id number] Magen Norwood MD [facility] Internal [facility] [address] [place] [address] 01/24/2023 16:07:43 01/24/2023 16:42:44 Adult health examination 853810329 Z00.00 Depression screening 171 630331 Z13.31 Diverticul itis of colon 883187349 K57.32 Umbilical hernia 6406037 07 K42.9 Obese class I [id number] 00600 E66.9 Vitamin D deficiency 347 67081 E55.9 [id number] Magen Norwood MD [facility] Internal [facility] [address] [place] [address] 09/19/2023 14:44:25 09/19/2023 15:15:52 Gastroesophageal reflux disease 963008219 K21.9 Diverticul itis of colon 458198427 K57.32 Obesity 209001808 E66.9 Tubular ad enomatous polyp of colon 291268635 D12.6 Screening for cardiovascular system disease 831858770 Z13.6 Vitamin D deficiency 347 48601 E55.9 [id number] Magen Norwood MD [facility] Internal [facility] [address] [place] [address] 12/12/2023 11:43:33 12/12/2023 12:11:33 Low back pain 447244254 M54.50 [id number] Magen Norwood MD [facility] Internal [facility] [address] [place] [address] 04/28/2024 14:27:55 04/28/2024 14:57:44 Adult health examination 846392694 Z00.00 Depression screening 171 652063 Z13.31 Gastroesop hageal reflux disease 662636600 K21.9 Diverticul itis of colon 390180151 K57.32 Obesity 189404165 E66.9 Screening for cardiovascular system disease 989070177 Z13.6 Vitamin D deficiency 347 16846 E55.9 [id number] Magen Norwood MD [facility] Internal Med [facility] [address] [facility] [address] [place] [address] 10/27/2024 14:27:39 10/27/2024 14:57:22 Gastroesophageal reflux disease 237899732 K21.9 Obese class I 6965740097 49172 E66.9 Screening for cardiovascular system disease 160658228 Z13.6 Fatigue 61036462 R53.83 R53.81 R53.0 Health Concerns Section Related Observation LastModified by Organization Detai ls LastModified Time None Recorded Concern Status LastModified by Organization Details LastModified Time None Recorded Advance Directives Directive None Recorded Payers Encounter Date Sequence Insurance Name Policy Number Policy Arevalo Covered Member ID Arevalo Member ID Guarantor Name 01/24/2023 1 [place] [id number] Ronn More [id number] Mayra More 09/19/2023 1 [place] [id number] Ronn More [id number] Mayra More 12/12/2023 1 [place] [id number] Ronn More [id number] Mayra oMre 04/28/2024 1 [place] [id number] Ronn More [id number] Mayra More 10/27/2024 1 [employer] - CHOICE (POS II) [id number] Ronn More [id number] 1 Mayra More Notes Date Note Type Note Provider Name and Address Organization Details Recorded Time 01/24/2023 text/html Patient Name: Jaspal Yip DerikDate Of Service: Sunday ( 01.24.2023 ): 1960 Age: 62 There has been approximately a 28 lb weight loss since 10/24/2021. This represents approximately a 14.3% change in weight. Weight change attributable to lifestyle changes. Vital Signs:Blood Pressure: Sitting Rt. Arm 120/68Pulse: Sitting 92 /min and RegularRespirations: 12Height 59 in or 1.5 mWeight 168 lb or 76.2 kgBMI 33.9Temperature: 97 F or 36.1 CPulse Oximetry: 97 % at rest on no oxygen Chief Complaint: Addressed in HPI Problems or conditions discussed in the HPI were the only ones reviewed during the encounter.Only social and family history addressed in the HPI were reviewed during this encounter. Attendant(s): None Constitutional and Systemic Symptoms: none Medication Reconciliation: from medication list. History of Present Illness In for a well patient check up. Last well patient evaluation was approximately one year. No interval complaints of any major medical problems. No hx of any chest pain, shortness of breath, nausea, vomiting, diarrhea or constitutional symptoms. Also being followed for other chronically monitored problems.Has Had A Mammogram dueHas Had A Pap Smear dueImmunizations Up To Date or refuses to takeNo Significant Change In Family HxColonoscopy or Cologuard: not dueFall Risk normalDepression Score: 0Hearing normalVision normalReviewed Smoking and Drug HistoryReviewed Immunization HistoryInstructed on importance of weight on diabetes, heart and other diseases aggravated by obesity. #1. Hx of obesity. Currently Class 1 Obesity BMI 30-34.99. Has tried numerous dietary support and supplements with no benefit. Instructed on the health consequences of the obese status particularly cancer - diabetes and heart disease. Discussed new modalities of weight loss including GLP-1 medications that are used to treat diabetes. Potential candidate for bariatric surgery: No. Wishes to be evaluated by Dietary: No and was offered to be evaluated and instructed by painter helper sign on weight loss diet.#2. History of diverticulitis of the colon clinically stable. No recent abdominal pain or any other signs or symptoms of any diverticular or diverticulitis.#3. Small umbilical hernia reducible not causing any symptoms. See no reason for obtaining a surgical consult at this time.Medication List Reviewed and Reconciled 01/24/2023aclofen 10 MG (TABLET - ORAL) One QidProtonix 40 MG One Daily Prn For RefluxAspirin 81 MG DailyVaccination and Mnabtrjufyse1230-90 InfluenzaSurgical HistoryLt. CTSPreventative Testing Confirmed by Our Lepdvps3103/22/2022 UPPER CGLZRFWSX82/14/2022 COLONOSCOPY ( 5 YEARS ) DEXA SCAN12/30/2021 ALBUMIN 4.2 G/DL11/25/2021 MAMMOGRAM COLOGUARD 11/24/2024Social HistoryDoes not smokeDrinks sociallyDomestic EngineerFamily HistoryMother 89 living with Type II DiabetesFather 72 arteriosclerotic heart disease and CABGSix brothers 4 living. CAD(1) MVA(1)Menarche 12 Menopause A0 Magen Norwood MD [address] [facility] [address], [place], [address], [place] [facility] 01/24/2023 16:39:19 09/19/2023 text/html Patient Name: Jaspal MoreDate Of Service: Sunday ( 09.19.2023 ): 1960 Age: 62 There has been approximately a 12 lb weight gain since 01/24/2023. This represents approximately a 7.1% change in weight. Weight change attributable to lifestyle changes. Vital Signs:Blood Pressure: Sitting Rt. Arm 120/78Pulse: Sitting 87 /min and RegularRespiratory Rate: 12Height 59.5 in or 1.5 mWeight 180 lb or 81.6 kgBMI 35.7Temperature: 97 F or 36.1 CPulse Oximetry: 95 % at rest on no oxygen Chief Complaint: Addressed in HPI Problems or conditions discussed in the HPI were the only ones reviewed during the encounter.Only social and family history addressed in the HPI were reviewed during this encounter. Attendant(s): NoneConstitutional and Systemic Symptoms:none Medication Reconciliation: from medication list. History of Present Illness #1. Hx of esophageal reflux currently stable. Hx of Complications: none The severity, duration and intensity of symptoms have improved. Frequency: most meals Treatment consists medications taken on a regular basis. Current therapy includes Protonix. There has been no nausea, eructation, vomiting, hematemesis, dysphagia, velopharyngeal insufficiency and odynophagia. No change in he frequency or intensity of symptoms. Has had no melena. Has had no . Discussed use of H2 antagonists and the possibility of trying to reduce the frequency of the use of any PPI inhibitors and try H2 antagonists to see if symptoms can be controlled with lease intensive therapy since a number of complications are associated with chronic prolonged use of PPI inhibitors. #2. Hx of diverticulitis. No interval complaints of pain, fever, chills or other constitutional symptoms. There has been no change in bowel habits or frequency. No change in the caliber of the stool. #3. Colon polyps: Hx of colon polyps. No interval complaints of any bleeding or change in bowel habits. Last colonoscopy was two years ago. #4. Hx of obesity. Currently Class 2 Obesity BMI 35-39.99. Has tried numerous dietary support and supplements with no benefit. Instructed on the health consequences of the obese status particularly cancer - diabetes and heart disease. Discussed new modalities of weight loss including GLP-1 medications that are used to treat diabetes. Potential candidate for bariatric surgery: No. Wishes to be evaluated by Dietary: No and was offered to be evaluated and instructed by painter helper sign on weight loss diet. Active Medication ListBaclofen 10 MG (TABLET - ORAL) One QidProtonix 40 MG One Daily Prn For RefluxAspirin 81 MG Daily Vaccination and Hurhlkqrswtx2867-58 Influenza Surgical Atusify5128-96 Lt. 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 CAD(1) MVA(1)Menarche 12 Menopause A0 Magen Norwood MD [address] [facility] [address], [place], [address], [facility] 09/19/2023 15:07:52 12/12/2023 text/html Patient Name: Jaspal Yip ThompsonDate Of Service: Sunday ( 12.12.2023 ): 1960 Age: 63 Vital Signs:Blood Pressure: Sitting Rt. Arm 142/88Pulse: Sitting 96 /min and RegularRespiratory Rate: 12Height 59.5 in or 1.5 mWeight 180 lb or 81.6 kgBMI 35.7Temperature: 97.3 F or 36.3 CPulse Oximetry: 96 % at rest on no oxygen Chief Complaint: Addressed in HPI Problems or conditions discussed in the HPI were the only ones reviewed during the encounter.Only social and family history addressed in the HPI were reviewed during this encounter. Attendant(s): NoneConstitutional and Systemic Symptoms:none Medication Reconciliation: from medication list. History of Present Illness #1. On 12/02/2023 patient was at [facility] and [place] slipped on a wet floor. Fell to the ground landing on her buttock. Did not hit her head. There was no loss of consciousness or change in cognitive status. Subsequently seen in the emergency room a radiographic studies were done of the lower back as well as pelvis and hip all of which were negative for any fracture or dislocation. Is still in considerable amount of pain discomfort in the left hip area with radiation down the lateral as well as posterior aspect of the leg down into the calf muscle. There has no numbness tingling or weakness noted. Reflexes symmetrical patellar reflexes are 3/4 bilaterally. The ankle reflexes are diminished 2/4 bilaterally. There are no neurosensory or motor deficits appreciated. There is considerable pain and discomfort any type of bending, stooping or even moving.: Active Medication ListProtonix 40 MG One Daily Prn For RefluxAspirin 81 MG Daily Vaccination and Mwnbaiziibhx0966-86 Influenza Surgical Fqytiag8960-12 Lt. 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 CAD(1) MVA(1)Menarche 12 Menopause A0 Magen Norwood MD [address] [facility], [facility] [address], [place], [address], [facility] 12/12/2023 12:04:52 04/28/2024 text/html Patient Name: Jaspal Yip DerikDate Of Service: Sunday ( 04.28.2024 ): 1960 Age: 63 Vital Signs:Blood Pressure: Sitting Rt. Arm 122/82Pulse: Sitting 88 /min and 93Respiratory Rate: 16Height 61 in or 1.5 mWeight 180 lb or 81.6 kgBMI 34.0Temperature: 97 F or 36.1 C Chief Complaint: Addressed in HPI Problems or conditions discussed in the HPI were the only ones reviewed during the encounter.Only social and family history addressed in the HPI were reviewed during this encounter. Attendant(s): NoneConstitutional and Systemic Symptoms:none Medication Reconciliation: from medication list. [id number]: Echocardiogram demonstrates an estimated ejection fraction of 60%. There is trace physiological mitral valve regurgitation. Aortic valve leaflets are structurally normal. No gradient across the aortic valve is noted. There is trace physiological tricuspid regurgitation. Peak pulmonary artery systolic pressure estimated 26 mmHg 12-17-2023: Nuclear stress test showed a estimated ejection fraction 59%. 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 The myocardial perfusion imaging showed no evidence of ischemia or scar. 01-02-2024: CT cardiac calcium score normal no evidence of any calcification in any of the major coronary arteries History of Present Illness In for a well patient check up. Last well patient evaluation was approximately one year. No interval complaints of any major medical problems. No hx of any chest pain, shortness of breath, nausea, vomiting, diarrhea or constitutional symptoms. Also being followed for other chronically monitored problems.Has Had A Mammogram already doneHas Had A Pap Smear dueImmunizations Up To Date or refuses to takeNo Significant Change In Family HxColonoscopy or Cologuard: not dueFall Risk normalDepression Score: 0PHQ-9 Score [IndicatedHearing normalVision normalReviewed Smoking and Drug HistoryReviewed Immunization HistoryInstructed on importance of weight on diabetes, heart and other diseases aggravated by obesity. #1. Hx of esophageal reflux currently stable. Hx of Complications: none The severity, duration and intensity of symptoms have improved. Frequency: most meals Treatment consists medications taken on a regular basis. Current therapy includes Protonix. There has been no nausea, eructation, vomiting, hematemesis, dysphagia, velopharyngeal insufficiency and odynophagia. No change in he frequency or intensity of symptoms. Has had no melena. Has had no . Discussed use of H2 antagonists and the possibility of trying to reduce the frequency of the use of any PPI inhibitors and try H2 antagonists to see if symptoms can be controlled with lease intensive therapy since a number of complications are associated with chronic prolonged use of PPI inhibitors. #2. Hx of diverticulitis. No interval complaints of pain, fever, chills or other constitutional symptoms. There has been no change in bowel habits or frequency. No change in the caliber of the stool. #3. Hx of obesity. Currently Class 1 Obesity BMI 30-34.99. Has tried numerous dietary support and supplements with no benefit. Instructed on the health consequences of the obese status particularly cancer - diabetes and heart disease. Discussed other modalities of weight loss no . Potential candidate for bariatric surgery: No. Wishes to be evaluated by Dietary: No and was offered to be evaluated and instructed by painter helper sign on weight loss diet. Active Medication ListProtonix 40 MG One Daily Prn For RefluxAspirin 81 MG Daily Vaccination and Immunization(X) 2005- INFLUENZA Surgical [id number] Lt. 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 CAD(1) MVA(1)Menarche 12 Menopause A0 Magen Norwood MD [address] [facility] [address], [place], [address], [facility] [employer] 04/28/2024 14:50:47 10/27/2024 text/html Patient Name: Jaspal Yip DerikDate Of Service: Sunday ( 10.27.2024 ): 1960 Age: 63 There has been approximately a 9.5 lb weight loss since 04/28/2024. This represents approximately a 5.3% change in weight. Weight change attributable to lifestyle changes. Vital Signs:Blood Pressure: Sitting Rt. Arm 120/78Pulse: Sitting 82 /min and RegularRespiratory Rate: 16Height 61 in or 1.5 mWeight 170.5 lb or 77.3 kgBMI 32.2Temperature: 97 F or 36.1 CPulse Oximetry: 93 % at rest on no oxygen Chief Complaint: Addressed in HPI Problems or conditions discussed in the HPI were the only ones reviewed during the encounter.Only social and family history addressed in the HPI were reviewed during this encounter. Attendant(s): NoneConstitutional and Systemic Symptoms:none Medication Reconciliation: from medication list. [id number]: Echocardiogram demonstrates an estimated ejection fraction of 60%. There is trace physiological mitral valve regurgitation. Aortic valve leaflets are structurally normal. No gradient across the aortic valve is noted. There is trace physiological tricuspid regurgitation. Peak pulmonary artery systolic pressure estimated 26 mmHg 12-17-2023: Nuclear stress test showed a estimated ejection fraction 59%. 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 The myocardial perfusion imaging showed no evidence of ischemia or scar. 01-02-2024: CT cardiac calcium score normal no evidence of any calcification in any of the major coronary arteries History of Present Illness #1. Hx of esophageal reflux currently stable. Hx of Complications: none The severity, duration and intensity of symptoms have improved. Frequency: most meals Treatment consists medications taken on a regular basis. Current therapy includes Protonix. There has been no nausea. No change in he frequency or intensity of symptoms. Has had no melena. Has had no . Discussed use of H2 antagonists and the possibility of trying to reduce the frequency of the use of any PPI inhibitors and try H2 antagonists to see if symptoms can be controlled with lease intensive therapy since a number of complications are associated with chronic prolonged use of PPI inhibitors. #2. Hx of obesity. Currently Class 1 Obesity BMI 30-34.99. Has tried numerous dietary support and supplements with no benefit. Instructed on the health consequences of the obese status particularly cancer - diabetes and heart disease. Discussed other modalities of weight loss no . Potential candidate for bariatric surgery: No. Wishes to be evaluated by Dietary: No and was offered to be evaluated and instructed by painter helper sign on weight loss diet. Active Medication ListProtonix 40 MG One Daily Prn For RefluxAspirin 81 MG Daily Vaccination and Immunization(X) 2005- INFLUENZA Surgical [id number] Lt. 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 CAD(1) MVA(1)Menarche 12 Menopause A0 Magen Norwood MD [address] [facility] [facility] [address], [place], [address], [place] [facility] [employer] 10/27/2024 14:56:16 OBGyn Episode No OBEpisode recorded.
== END 2024-11-27 13:50 | disposition home or self-care (01) ==
LOC: ANHIMG 13:53
PROVIDERS: PCP Internal Medicine; Visit Provider Internal Medicine
DX: Z12.31 Encounter for screening mammogram for malignant neoplasm of breast (principal); Z98.82 Breast implant status; M85.89 Other specified disorders of bone density and structure, multiple sites
CPT/HCPCS: 77063; 77067; 77080